=== PATIENT | male | born 1995 | race Caucasian/White ===

== ENCOUNTER 2021-04-26 11:40 | Outpatient (REF) | payer OTHER, SELFPAY ==
[2021-04-27 13:57] LABS: COVID-19 RT-PCR UVMMC Result Negative (Negative)
== END 2021-04-26 11:41 | disposition home or self-care (01) ==
LOC: LBN 11:40
PROVIDERS: Visit Provider Nurse Practitioner Family
DX: Z20.822 Contact with and (suspected) exposure to COVID-19 (principal); J02.9 Acute pharyngitis, unspecified
CPT/HCPCS: 87077; U0003; 87070

== ENCOUNTER 2021-12-04 17:57 | Emergency (ER) | payer BC, SELFPAY ==
[2021-12-04 18:00] VITALS: BP 146/77; PULSE 89; RESP 16; TEMP 36.8; O2SAT 96
[2021-12-04] MEDS: Fluorescein STRIPS 100/BOX 1 MG OP (18:33)
[2021-12-04] MEDS: Tetracaine 0.5% 4 ML BTL OP (18:33)
--- NOTE | 2021-12-04 18:43 | W.ED.GENAD ---
Discharge Plan Disposition Patient Disposition: HOME Condition: Stable Discharge Details Clinical Impression: Abrasion, corneal Primary Care Provider: Molly,Local ED Provider: Shiela Harmon Home Meds and New Rx's Prescriptions: New polymyxin B sulf-trimethoprim [Polytrim] 10,000 unit- 1 mg/mL drops 1 drp ophthalmic (eye) Q3H 7 Days Qty: 10 0RF Rx Instructions: while awake; do not exceed 6 doses in 24 hours Continued fluticasone propionate [Flonase Allergy Relief] 50 mcg/actuation spray,suspension 2 spray intranasal DAILY 30 Days Qty: 16 6RF Label Comments: stopped using due to migraines Rx Instructions: administer into each nostril Discharge Instructions Instructions: Corneal Abrasion (ED) Additional Instructions: use Polytrim as instructed wear sunglasses when outside as you will likely be sensitive to the sun If you have pain or symptoms such as tearing or vision change, I recommend seeing ophthalmology and follow-up [facility] eye care: [phone] Please return earlier should you have new or worsening complaints I recommend wearing safety glasses in the future Discharge Data Discharge Date/Time-TO BE ENTERED AT DEPARTURE: 12/04/21 18:59 Medical Decision Making Patient appears well Tolerated procedure without incident Placed on Polytrim for home Ophthalmology referral Return precautions discussed and patient Medical Records Medical records reviewed: Yes I reviewed the patient's medical records. HPI General Date/Time Provider Initiated Documentation: 12/04/21 18:25. HPI Narrative: This 26-year-old male presents with pain to his left cornea. Patient reportedly was blowing the room with an air blower and felt something kicked back. He states that he has had pain with blinking since the event occurred to his left eye. Unsure regarding tetanus. Denies any vision change. Describes a scratching sensation. Has had increased drainage. Related Data Home Medications Medication Instructions Recorded Confirmed fluticasone propionate 50 2 spray intranasal DAILY 30 days 11/21/21 11/21/21 mcg/actuation nasal #16 grams spray,suspension (Flonase Allergy Relief) polymyxin B sulfate 10,000 1 drp ophthalmic (eye) Q3H 7 days 12/04/21 unit-trimethoprim 1 mg/mL eye #10 mL drops (Polytrim) Previous Rx's Medication Instructions Recorded fluticasone propionate 50 2 spray intranasal DAILY 30 days 11/21/21 mcg/actuation nasal #16 grams spray,suspension (Flonase Allergy Relief) polymyxin B sulfate 10,000 1 drp ophthalmic (eye) Q3H 7 days 12/04/21 unit-trimethoprim 1 mg/mL eye #10 mL drops (Polytrim) Allergies Allergy/AdvReac Type Severity Reaction Status Date / Time No Known Allergies Allergy Verified 12/04/21 18:04 General Stated Complaint: EyeProblem ANDREW: 4 Review of Systems Narrative: Review of systems obtained x3 and negative aside from indication in [facility] PFSH All Active Problems (Updated 12/04/21 @ 18:50 by LAUREL Chapman) Abrasion, corneal (Acute) Sinusitis (Acute) Chronic nasal congestion (Acute) Medical History (Updated 12/04/21 @ 18:50 by LAUREL Chapman) Nasal obstruction Social History (Updated 11/15/21 @ 09:15 by Valarie Broussard RN) Smoking/Tobacco Use Status: Current-Occasional Tobacco Type: e-cigarettes Smoking risk assessment performed?: Yes Alcohol Intake: current Alcohol Intake frequency: a few times a month Drug use: Occasionally Substance use type: marijuana Do you feel safe at home: Yes Do you feel safe in your relationship?: Yes Exam Const General: cooperative, comfortable and no acute distress Eyes Other: Foreign body noted under left upper eyelid, small abrasion to the 6 o'clock position overlying the iris, no rust ring Course Vital Signs Vital signs: Vital Signs Temperature 36.8 C 12/04/21 18:00 Pulse 89 12/04/21 18:00 Respiratory Rate 16 12/04/21 18:00 Blood Pressure 146/77 H 12/04/21 18:00 Pulse Oximetry 96 12/04/21 18:00 Temperature 36.8 C 12/04/21 18:00 Temperature Source Skin 12/04/21 18:00 Pulse 89 12/04/21 18:00 Respiratory Rate 16 12/04/21 18:00 Respiratory Effort 12/04/21 18:05 Blood Pressure 146/77 H 12/04/21 18:00 Blood Pressure Position Sitting 12/04/21 18:00 Pulse Oximetry 96 12/04/21 18:00 Pain Level 2 12/04/21 18:00 Procedures FB Removal Eye Time Out performed: Yes Location: eye (L) Topical anesthetic used: tetracaine Foreign body: other Evidence of corneal penetration: No Technique: cotton tip swab Procedure performed under: direct visualization with magnification Post-procedure medication: ophthalmic antibiotic Patient tolerated procedure: well Complications: corneal penetration PAWSS Have you Been Recently Intoxicated or Drunk Within the Last 30 days?: No Have you Ever Experienced Previous Episodes of Alcohol Withdrawal?: No Have you ever Experienced Withdrawal Seizures?: No Have you ever Experienced Delirium Tremens(DT)s?: No Have you ever undergone Alcohol Rehabilitation Treatment (i.e, inpt ot outpatient treatment programs)?: No Have you ever Experienced Blackouts?: No Have you ever Combined Alcohol with other Downers within the last 90 days?: No Have you ever Combined Alcohol with any other Substance of Abuse during the last 90 days?: No Positive Blood Alcohol level on Presentation? [PCS.BAL]: No Evidence of Increased Autonomic Activity (i.e. HR>120, tremor, sweating, agitation, nausea)?: No Result: 0
== END 2021-12-04 18:59 | disposition home or self-care (01) ==
PROVIDERS: Emergency Provider Physician Assistant
DX: T15.02XA Foreign body in cornea, left eye, initial encounter (principal); F17.290 Nicotine dependence, other tobacco product, uncomplicated; Z23 Encounter for immunization; X58.XXXA Exposure to other specified factors, initial encounter
CPT/HCPCS: 65220; 90471; 99283

== ENCOUNTER 2022-02-03 06:03 | Day surgery (SDC) | payer BC, SELFPAY ==
[2022-02-03] VITALS (11 sets, daily range): BP systolic 87–131; BP diastolic 39–95; PULSE 53–65; RESP 14–18; TEMP 36–36.6; O2SAT 97–100; BMI 31.5
[2022-02-03] MEDS: Lactated Ringers 1,000 ML 80 ML IV (06:37)
--- NOTE | 2022-02-03 06:58 | W.ANESPRE ---
General Info Date of Service Date Performed: 02/03/22 Height: 6 ft 3 in Weight: 114.5 kg Body Mass Index (BMI): 31.5 Surgical Procedure: Operation Date: 02/03/22 07:40 Proposed Procedure Side Surgeon p Septoplasty (Nasal) Cedric Bird MD Meds Allergies and Home Medications Allergies Allergy/AdvReac Type Severity Reaction Status Date / Time No Known Allergies Allergy Verified 02/03/22 06:21 Home Medication Medication Instructions Recorded Unknown [No Known Home Meds] 12/19/21 Current Visit Medications: Current Medications Generic Name Dose Route Start Last Admin Trade Name Freq PRN Reason Stop Dose Admin Ringer's Solution 1,000 mls @ 80 mls/hr 02/03/22 06:00 IV 03/02/22 23:59 INFUSION YING Cefazolin Sodium/Dextrose 2 gm in 50 mls @ 100 mls/hr 02/03/22 06:00 Ancef Duplex IVPB 03/02/22 23:59 PREOP YING Tranexamic Acid 1,000 mg/ 60 mls @ 360 mls/hr 02/03/22 06:00 Sodium Chloride IVPB 02/03/22 18:00 PREOP YING IV Miscellaneous Supplies 1 each 02/03/22 06:00 Iv Access IV 03/02/22 23:59 DIRECTED YING Sodium Chloride 0 ml 02/03/22 06:00 Normal Saline Flush 10 Ml Syr IV 03/02/22 23:59 PRN PRN Sodium Chloride 0 ml 02/03/22 06:00 Normal Saline 10 Ml Vial IJ 03/02/22 23:59 DIRECTED PRN Sterile Water 0 ml 02/03/22 06:00 Water,Injection,Sterile 10 Ml Vial IJ 03/02/22 23:59 DIRECTED PRN PFSH Active Problems Active Problems: Problem Status Onset Code Deviated nasal septum J34.2 Impacted cerumen of both ears H61.23 Sinusitis J32.9 Chronic nasal congestion R09.81 Medical History Medical History Nasal obstruction Surgical History Surgical History History of appendectomy as a child History of wisdom tooth extraction Tobacco Smoking/Tobacco Use Status: Current-Occasional Tobacco Type: e-cigarettes Alcohol Alcohol Intake: current Alcohol intake frequency: a few times a month Alcohol type: beer Substance Use Substance use: Occasionally Substance use type: marijuana Details: e cigarette: t-1, alcohol: t-2, one drink, marijuana: t-1, pen for sleep Vital Signs and Lab Results Vital Signs Most Recent Vital Signs in EMR: Most Recent Vital Signs Temp Pulse Resp BP Pulse Ox 36.5 C 65 18 131/95 H 97 02/03/22 06:22 02/03/22 06:22 02/03/22 06:22 02/03/22 06:22 02/03/22 06:22 Lab Results Blood Type / Crossmatch: No Data to Display Complete Blood Count: No Data to Display Complete Metabolic Panel: No Data to Display Liver Function Panel: No Data to Display Coagulation Panel: No Data to Display Cardiac Panel: No Data to Display Arterial Blood Gas: No Data to Display Venous Blood Gas: No Data to Display Pancreas Panel: No Data to Display Thyroid Panel: No Data to Display Infectious Disease: No Data to Display Blood Cultures: No Data to Display Toxicology Panel: No Data to Display Anesthesia Assessment and Plan Anesthesia History Personal History: No History of Anesthesia Complications Family History: No Family History of Anesthesia Complications Exercise Tolerance Exercise Tolerance: Metabolic Equivalents>4 Pertinent Negatives Pertinent Negatives: No Symptoms of GERD, No Major Cardiovascular Symptoms or Complaints and No Major Pulmonary Symptoms or Complaints Cardiac & Pulmonary Exam Cardiac Exam: Normal S1/S2 Heart Sounds Pulmonary Exam: Clear Bilateral Breath Sounds Implantable Cardiac Device Does patient have a Pacemaker or an ICD?: No Airway Exam Known Difficult Airway: No Mallampati Class: 2 Mouth Opening: Normal (> 3cm) Thyromental Distance: Greater than 3 cm Facial Hair: Full Herrera (Mustache) Neck Range of Motion: Full ROM Neck Circumference: Normal Teeth Condition: Normal Dentition ASA Classification ASA Score: ASA 2 Emergency Case?: No NPO Status NPO Status: NPO Clears >2 hours, Solids >8 hours Anesthesia Plan Resuscitation Status: Full Code Anesthesia Technique: General Anesthesia Airway Planned: Endotracheal Tube Monitors Used: Standard Monitors
[2022-02-03] MEDS: ceFAZolin 2 GM/50 ML BAG IVPB (07:31)
[2022-02-03] MEDS: Cocaine Nasal 4% 4 ML BTL (07:59)
[2022-02-03] MEDS: Lidocaine 1% Pres-Free W/EPI 1/200,000 10 ML VIAL (08:00)
[2022-02-03] MEDS: Bacitracin 1 PACKET (08:21)
--- NOTE | 2022-02-03 08:33 | PDOC.DSDIS_ITS ---
Date of service: 02/03/22 Time of Service: 08:36 Discharge Plan Disposition Patient Disposition: HOME Condition: Good Discharge Details Reason For Visit: Septoplasty Attending Provider: Cedric Bird Home Meds and New Rx's Prescriptions: New cephalexin 750 mg capsule 750 mg PO BID Qty: 10 0RF Discharge Instructions Additional Instructions: My cell phone number is [phone], please call with any concerns or problems Stand Alone Forms: ENT-Septo Instr. [place] Referrals: Cedric Bird MD [ [facility] STAFF PHYSICIAN] - (, please call for appointment prior to patient's departure) Discharge Orders Discharge Orders: Discharge Order (Routine); Ordered 02/03/22 Ordered By: Cedric Bird
--- NOTE | 2022-02-03 08:37 | ROE_ITS ---
Date of service: 02/03/22 Time of Service: 08:37 Operative Note Operative Note DATE OF PROCEDURE: 02/03/22 PRE-OP DIAGNOSIS: Nasal congestion secondary to deviated nasal septum POST-OP DIAGNOSIS: same PROCEDURE: Septoplasty SURGEON: Cedric Bird ANESTHESIA TYPE: General LMA/ETT Refer to Anesthesia Record ESTIMATED BLOOD LOSS: 5 PATHOLOGY: none sent COMPLICATIONS: None Patient was transported to: PACU Patient's condition: stable Indications: Patient with the above problems. Options were explained to the patient regarding further management. He elected to undergo the above procedure. Consent was filled out and signed prior to surgery. Risks of narcotics were discussed at length. H&P was reviewed. There have been no changes. All que stions were answered prior to surgery Findings: Markedly deviated nasal septum, nicely medialized with no injury to the overlying mucosa save for the hemitransfixion incision following surgery. Procedure Description: After obtaining an adequate level of general endotracheal anesthesia the patient was was positioned in the supine position and prepped and draped in appropriate fashion. 1% lidocaine with 1/100,000 epinephrine was injected in the inferior turbinates bilaterally as well as into the anterior septum bilaterally. Following this cocaine pledgets were placed in the nasal cavity and left for 5 minutes at which point time they were removed. A left-sided hemitransfixion incision was made using a 15 blade, and then submucoperichondrial and submucoperiosteal planes were developed along the left side of the nasal septum posteriorly including over a large spur inferiorly. The [place] knife was used to incise the cartilage anteriorly leaving a strong dorsal and columellar strut. Submucoperichondrial and submucoperiosteal planes were then developed on the opposite side of the nasal septum. A swivel knife was used to excise the deviated quadrangular cartilage posteriorly and then a combination of [place]- Valle's and More's and a 4 mm chisel were used to remove the bony spur from on the floor as well as the bony deviated nasal septum posteriorly. Once been accomplished the wound was inspected for relative hemostasis. The mucosa was found to be intact and viable bilaterally. The septum was found to be nicely medialized and the nasal tip was found to be stable. A small vent hole was made posteriorly on the left to allow any bloody seepage to escape. The hemitransfixion incision was then closed with a single four-point 0 chromic suture and then Spivey splints positioned along the septum bilaterally and sutured into place using a 3-0 Prolene on a Richard needle. Merocel packs were placed along the inferior turbinates bilaterally the patient was awakened and extubated by anesthesia and taken to recovery room in stable condition. Merocel packs were removed. The patient tolerated procedure well. I was present for the entire case.
--- NOTE | 2022-02-03 10:14 | W.ANESPOSTOP ---
Postoperative Evaluation Date, Time and Location Date Performed: 02/03/22 Time Performed: 10:09 Patient Location: Day Surgery Unit Vital Signs Most Recent Imported Vital Signs: Most Recent Vital Signs Temp Pulse Resp BP Pulse Ox 36.2 C L 55 L 16 108/69 98 02/03/22 10:01 02/03/22 10:01 02/03/22 10:01 02/03/22 10:01 02/03/22 10:01 Pain Score Most Recent Pain Score: Most Recent Pain Score Pain Level 0 02/03/22 10:01 Assessment Mental Status: Awake (Alert & Oriented to Patient Baseline) Airway and Respiratory Function: Patent airway with normal (patient baseline) respiratory exam Cardiovascular Function: Hemodynamically Stable Hydration Status: Adequately Hydrated Nausea & Vomiting: No Nausea or Vomiting Pain: Pt. Denies Any Pain Peripheral Nerve Block: Patient did not receive a nerve block
== END 2022-02-03 11:30 | disposition home or self-care (01) ==
PROVIDERS: Visit Provider Otolaryngology
PROC: (CPT 30520; principal; 2022-02-03 07:30)
DX: J34.2 Deviated nasal septum (principal); R09.81 Nasal congestion
CPT/HCPCS: 30520; J0131; J0690; J1100; J2250; J2405

== ENCOUNTER 2023-01-28 20:52 | Outpatient (REF) | payer BC, SELFPAY ==
[2023-01-28 19:56] LABS: Abs Immature Grans 0.05 10^3/uL (0.0-0.06); Absolute Basophil Count 0.13 10^3/uL (0.0-0.2); Absolute Eosinophil Count 0.53 10^3/uL (0.0-0.7); Absolute Lymphocyte Count 2.47 10^3/uL (1.2-3.4); Absolute Monocyte Count 0.55 10^3/uL (0.1-0.8); Absolute Neutrophil Count 3.68 10^3/uL (1.2-6.7); Basophils % 1.8; Eosinophils % 7.2; HCT 43.2 % (40.0-50.0); HGB 14.7 g/dL (13.5-17.5); Immature Grans % 0.7; Lymphocytes % 33.3; MCH 28.7 pg (27.0-33.0); MCV 84 fL (80-95); MPV 9.4 fL (8.0-11.0); Monocytes % 7.4; Neutrophils % 49.6; Platelet Count 277 10^3/uL (130-400); RBC 5.13 10^6/uL (4.36-5.78); RDW 12.4 % (11.8-14.1); RDW-SD 38.2 fL; WBC 7.41 10^3/uL (4.4-10.8)
[2023-01-28 20:02] LABS: ESR 8 mm/hr (0-15); Mono Screening Negative (Negative)
[2023-01-28 20:19] LABS: ALT 28 U/L (16-63); AST 15 U/L (15-37); Alkaline Phosphatase 68 U/L (46-116); Anion Gap 7.9 mmol/L (3-11); BUN 19 mg/dL (7-18); Bilirubin, Total 0.3 mg/dL (0.2-1.0); C-Reactive Protein 0.28 mg/dL (0.0-0.3); CO2 26.1 mmol/L (21.0-32.0); CREATININE 0.9 mg/dL (0.70-1.30); Calcium 9.7 mg/dL (8.5-10.1); Chloride 105 mmol/L (98-107); Estimated GFR 120.05 (mL/min/1.73m2); Glucose 101 mg/dL (74-106); Potassium 3.9 mmol/L (3.5-5.1); Sodium 139 mmol/L (136-145); TSH (W/Ref FT4) 1.27 uIU/mL (0.36-3.74); Total Protein 7.7 g/dL (6.4-8.2)
== END 2023-01-28 20:53 | disposition home or self-care (01) ==
LOC: NCHCN 20:52
PROVIDERS: PCP Physician Assistant Medical; Visit Provider Nurse Practitioner Family
DX: R16.1 Splenomegaly, not elsewhere classified (principal); L04.9 Acute lymphadenitis, unspecified; R53.83 Other fatigue
CPT/HCPCS: 80053; 85652; 84443; 85025; 86140; 86308